=== PATIENT | male | born 1950 | race Two or more races ===

== ENCOUNTER 2022-02-24 17:21 | Emergency (ER) | payer OTHER ==
[~2022-02-24] VITALS: Ht 175.3 cm; Wt 81.0 kg
[2022-02-24] MEDS ORDERED: FLUORESCEIN SOD OPTH TEST STRIP LEFTEYE ONE (22:15)
[2022-02-24] MEDS ORDERED: ACYCLOVIR SOD 50MG/ML 800 MG in SODIUM CHL 0.9% 250 ML IV ONE (22:15)
[2022-02-24 23:12] LABS: Basophils # (auto) 0.1 10 ^3/uL (0-0.2); Basophils % (auto) 1.3 % (0.0-2.0); Eosinophils # (auto) 0.1 10 ^3/uL (0-0.8); Eosinophils % (auto) 1.5 % (0.0-7.0); Hematocrit 42.1 % (41.0-53.0); Hemoglobin 13.9 g/dL (13.5-17.5); Lymphocytes # (auto) 1.7 10 ^3/uL (0.4-5.4); Lymphocytes % (auto) 28.3 % (10.0-50.0); Mean Corpuscular Hemoglobin 31.6 pg (28.0-32.0); Mean Corpuscular Volume 95.7 fL (80.0-100.0); Monocytes # (auto) 0.4 10 ^3/uL (0-1.3); Monocytes % (auto) 7.1 % (0.0-12.0); Neutrophils # (auto) 3.8 10 ^3/uL (1.6-8.6); Neutrophils % (auto) 61.8 % (37.0-80.0); Nucleated Red Blood Cells % 0.1 %; Red Blood Cells 4.39 10^6/uL (4.5-5.90); Red Cell Distribution Width 13.4 % (11.8-14.3); White Blood Cell 6.1 10^3/uL (4.4-10.8)
[2022-02-24 23:29] LABS: Albumin 3.6 g/dL (3.4-5.0); Calcium 8.7 mg/dL (8.5-10.1); Potassium 3.3 mmol/L (3.5-5.1)
[2022-02-24 23:33] LABS: BUN/Creatinine Ratio 18.3; Bilirubin, Total 1.5 mg/dL (0.2-1.0); Total Protein 7.4 g/dL (6.4-8.2)
[2022-02-25] MEDS ORDERED: ACYCLOVIR SOD 50MG/ML 800 MG in SODIUM CHL 0.9% 250 ML IV ONE (06:15)
[2022-02-25 11:00] VITALS: BP 124/82
== END 2022-02-25 14:43 | disposition left against medical advice (07) ==
LOC: ER 17:34
DX: B02.30 Zoster ocular disease, unspecified (principal); Z20.822 Contact with and (suspected) exposure to COVID-19
CPT/HCPCS: 36415; 80053; 85025; 87426; 96365; 96366; 99285; J0133; J7050

== ENCOUNTER 2022-03-01 07:59 | Inpatient (IN) | payer OTHER ==
[~2022-03-01] VITALS: Ht 177.8 cm; Wt 76.4 kg
[2022-03-01 09:00] LABS: Basophils # (auto) 0 10 ^3/uL (0-0.2); Basophils % (auto) 0.3 % (0.0-2.0); Eosinophils # (auto) 0 10 ^3/uL (0-0.8); Eosinophils % (auto) 0.1 % (0.0-7.0); Hematocrit 41.6 % (41.0-53.0); Lymphocytes # (auto) 0.5 10 ^3/uL (0.4-5.4); Lymphocytes % (auto) 6.5 % (10.0-50.0); Mean Corpuscular Hemoglobin 32.3 pg (28.0-32.0); Mean Corpuscular Hgb Conc. 33.7 g/dL (32.0-36.0); Mean Corpuscular Volume 95.7 fL (80.0-100.0); Monocytes # (auto) 0.2 10 ^3/uL (0-1.3); Monocytes % (auto) 2.8 % (0.0-12.0); Neutrophils # (auto) 7.3 10 ^3/uL (1.6-8.6); Neutrophils % (auto) 90.3 % (37.0-80.0); Red Blood Cells 4.35 10^6/uL (4.5-5.90); Red Cell Distribution Width 13.5 % (11.8-14.3)
[2022-03-01 09:19] LABS: Albumin 3.5 g/dL (3.4-5.0); Calcium 8.8 mg/dL (8.5-10.1); Magnesium 2.3 mg/dL (1.6-2.6); Potassium 3.9 mmol/L (3.5-5.1)
[2022-03-01 09:27] LABS: BUN/Creatinine Ratio 19.2; Total Protein 6.9 g/dL (6.4-8.2)
[2022-03-01] MEDS ORDERED: cefTRIAXone 1GM/50ML D5W 50 ML IV ONE (15:30)
[2022-03-01] MEDS ORDERED: ACETAMINOPHEN 325 MG TAB PO ONE (18:00)
[2022-03-01] MEDS ORDERED: ONDANSETRON HCL 4 MG/2 ML VIAL IV PRN (18:45)
[2022-03-01] MEDS ORDERED: MORPHINE SULFATE INJ 2 MG/ml SYRG IV PRN ×2 (18:45)
[2022-03-01] MEDS ORDERED: NITROGLYCERIN 0.4 MG SL TAB SL PRN (18:45)
[2022-03-01] MEDS ORDERED: SODIUM CHLORIDE 0.9% 1,000 ML IV ONE (19:00)
[2022-03-01 19:55] LABS: INR 1.01 (0.9-1.15)
[2022-03-01 19:56] LABS: Cholesterol 181 mg/dL (< 200); HDL Cholesterol 41 mg/dL (40-59); LDL Cholesterol 130 mg/dL (< 100); Triglycerides 118 mg/dL (< 150)
[2022-03-01] MEDS: metroNIDAZOLE 500MG/100ML 100 ML IV SCH (22:25)
[2022-03-01 22:56] VITALS: BP 107/75
[2022-03-01] MEDS ORDERED: OMEP20TA PO (23:07)
[2022-03-02 05:00] VITALS: BP 107/70
[2022-03-02] MEDS: metroNIDAZOLE 500MG/100ML 100 ML IV SCH ×3 (05:27→22:22)
[2022-03-02 06:46] LABS: Alanine Aminotransferase 18 U/L (16-61); Albumin 3.1 g/dL (3.4-5.0); Anion Gap 6 (5-15); Aspartate Aminotransferase 18 U/L (15-37); BUN/Creatinine Ratio 18.7; Blood Urea Nitrogen 17 mg/dL (7-18); Calcium 8.1 mg/dL (8.5-10.1); Carbon Dioxide 24 mmol/L (21-32); Chloride 109 mmol/L (98-107); GFR African American 106 mL/min; GFR Non-African American 88 mL/min; Glucose 96 mg/dL (74-106); Sodium 139 mmol/L (136-145)
[2022-03-02 06:49] LABS: Alkaline Phosphatase 98 U/L (45-117); Total Protein 6.4 g/dL (6.4-8.2)
[2022-03-02 06:57] LABS: Basophils # (auto) 0 10 ^3/uL (0-0.2); Basophils % (auto) 0.8 % (0.0-2.0); Eosinophils # (auto) 0 10 ^3/uL (0-0.8); Eosinophils % (auto) 0.7 % (0.0-7.0); Hematocrit 42.1 % (41.0-53.0); Hemoglobin 14.3 g/dL (13.5-17.5); Lymphocytes # (auto) 1.1 10 ^3/uL (0.4-5.4); Lymphocytes % (auto) 18.7 % (10.0-50.0); Mean Corpuscular Hemoglobin 32.3 pg (28.0-32.0); Mean Corpuscular Hgb Conc. 33.9 g/dL (32.0-36.0); Mean Corpuscular Volume 95.3 fL (80.0-100.0); Monocytes # (auto) 0.4 10 ^3/uL (0-1.3); Monocytes % (auto) 6.8 % (0.0-12.0); Neutrophils # (auto) 4.4 10 ^3/uL (1.6-8.6); Nucleated Red Blood Cells % 0.2 %; Red Blood Cells 4.42 10^6/uL (4.5-5.90); Red Cell Distribution Width 13.4 % (11.8-14.3)
[2022-03-02 08:05] VITALS: BP 100/64
[2022-03-02 09:00] VITALS: BP 100/64
[2022-03-02] MEDS: cefTRIAXone 1GM/50ML D5W 50 ML IV SCH (09:44)
[2022-03-02] MEDS ORDERED: ACETAMINOPHEN 650 MG RECT SUPP PR PRN (13:45)
[2022-03-02 18:44] LABS: Urine Bacteria FEW /hpf (None Seen); Urine Blood Negative /uL (Negative); Urine Mucus MODERATE (None Seen); Urine Specific Gravity 1.024 (1.001-1.035); Urine WBC 1 /hpf (0 - 3)
[2022-03-02 20:00] VITALS: BP 115/74
[2022-03-02 22:00] VITALS: BP 115/74
[2022-03-03 05:00] VITALS: BP 114/69
[2022-03-03] MEDS: metroNIDAZOLE 500MG/100ML 100 ML IV SCH ×3 (05:28→22:18)
[2022-03-03] MEDS: cefTRIAXone 1GM/50ML D5W 50 ML IV SCH (08:36)
[2022-03-03 09:00] VITALS: BP 132/62
[2022-03-03 13:00] VITALS: BP 125/73
[2022-03-03 16:45] VITALS: BP 118/73
[2022-03-03 22:00] VITALS: BP 117/68
[2022-03-04 05:00] VITALS: BP 116/75
[2022-03-04] MEDS: metroNIDAZOLE 500MG/100ML 100 ML IV SCH ×3 (06:25→21:28)
[2022-03-04] MEDS: cefTRIAXone 1GM/50ML D5W 50 ML IV SCH (08:34)
[2022-03-04 09:00] VITALS: BP 119/76
[2022-03-04 13:00] VITALS: BP 122/82
[2022-03-04] MEDS ORDERED: BUPIVACAINE HCL 0.25% P/F 10 ML VIAL ONE (13:44)
[2022-03-04] MEDS ORDERED: GLYCOPYRROLATE 0.2 MG/ML 1ML VIAL ONE (14:00)
[2022-03-04] MEDS ORDERED: DexAMETHasone SOD PHOS 10MG/1ML VIAL INJ ONE (14:00)
[2022-03-04] MEDS ORDERED: LIDOCAINE HCL 100 MG/5ML (2%) SYRG INJ IV ONE (14:00)
[2022-03-04] MEDS ORDERED: ePHEDrine SULFATE 50 MG/ML AMP ONE (14:00)
[2022-03-04] MEDS ORDERED: ONDANSETRON HCL 4 MG/2 ML VIAL ONE (14:00)
[2022-03-04] MEDS ORDERED: fentaNYL CITRATE 100 MCG/2 ML VL ONE ×2 (14:00→16:17)
[2022-03-04] MEDS ORDERED: PROPOFOL 10 MG/ML 20 ML IV ONE (14:00)
[2022-03-04] MEDS ORDERED: HYDROmorphone HCL 2 MG/ML VL/or syr ONE (14:00)
[2022-03-04] MEDS ORDERED: MIDAZOLAM HCL 2MG/2ML 2ml VIAL (1mg/ml) ONE (14:00)
[2022-03-04] MEDS ORDERED: ceFAZolin 1GM/50ML 100 ML IV ONE (14:15)
[2022-03-04] MEDS ORDERED: SUGAMMADEX 200mg/2ml Vial (100MG/ML) IV ONE (15:28)
[2022-03-04] MEDS ORDERED: ONDANSETRON HCL 4 MG/2 ML VIAL IV PRN (15:30)
[2022-03-04] MEDS ORDERED: HYDROmorphone HCL 2 MG/ML VL/or syr IV PRN (15:30)
[2022-03-04] MEDS: D5W/SOD CHL 0.45% 1,000 ML IV SCH (18:58)
[2022-03-04 22:00] VITALS: BP 122/60
[2022-03-05 05:00] VITALS: BP 119/72
[2022-03-05] MEDS: metroNIDAZOLE 500MG/100ML 100 ML IV SCH ×3 (05:52→21:20)
[2022-03-05 09:42] VITALS: BP 134/71
[2022-03-05] MEDS: cefTRIAXone 1GM/50ML D5W 50 ML IV SCH (09:45)
[2022-03-05] MEDS: D5W/SOD CHL 0.45% 1,000 ML IV SCH (09:45)
[2022-03-05 12:06] VITALS: BP 119/76
[2022-03-05] MEDS ORDERED: BENZOCAINE (DENTAL) 20 % SPRAY 60ML MT PRN (14:00)
[2022-03-05 15:00] LABS: Albumin 2.9 g/dL (3.4-5.0); Potassium 3.7 mmol/L (3.5-5.1)
[2022-03-05 16:01] LABS: BUN/Creatinine Ratio 14.6; Total Protein 6.2 g/dL (6.4-8.2)
[2022-03-05 16:05] LABS: Basophils # (auto) 0.1 10 ^3/uL (0-0.2); Basophils % (auto) 0.4 % (0.0-2.0); Eosinophils # (auto) 0 10 ^3/uL (0-0.8); Hematocrit 41.5 % (41.0-53.0); Hemoglobin 13.6 g/dL (13.5-17.5); Lymphocytes # (auto) 0.9 10 ^3/uL (0.4-5.4); Lymphocytes % (auto) 7.5 % (10.0-50.0); Mean Corpuscular Hemoglobin 31.5 pg (28.0-32.0); Mean Corpuscular Hgb Conc. 32.9 g/dL (32.0-36.0); Mean Corpuscular Volume 95.7 fL (80.0-100.0); Monocytes # (auto) 0.5 10 ^3/uL (0-1.3); Monocytes % (auto) 4.2 % (0.0-12.0); Neutrophils # (auto) 10.4 10 ^3/uL (1.6-8.6); Neutrophils % (auto) 87.9 % (37.0-80.0); Red Blood Cells 4.34 10^6/uL (4.5-5.90); Red Cell Distribution Width 13.4 % (11.8-14.3); White Blood Cell 11.9 10^3/uL (4.4-10.8)
[2022-03-05 17:28] VITALS: BP 124/73
[2022-03-05 22:00] VITALS: BP 117/75
[2022-03-06] MEDS: D5W/SOD CHL 0.45% 1,000 ML IV SCH ×2 (01:09→11:36)
[2022-03-06 05:00] VITALS: BP 131/81
[2022-03-06] MEDS: metroNIDAZOLE 500MG/100ML 100 ML IV SCH ×3 (05:37→23:24)
[2022-03-06 09:00] VITALS: BP 132/84
[2022-03-06] MEDS: cefTRIAXone 1GM/50ML D5W 50 ML IV SCH (09:27)
[2022-03-06 13:00] VITALS: BP 131/90
[2022-03-06 17:00] VITALS: BP 122/95
[2022-03-06 22:00] VITALS: BP 134/84
[2022-03-07] MEDS: D5W/SOD CHL 0.45% 1,000 ML IV SCH ×2 (00:05→13:25)
[2022-03-07 05:00] VITALS: BP 128/89
[2022-03-07] MEDS: metroNIDAZOLE 500MG/100ML 100 ML IV SCH ×3 (06:43→20:37)
[2022-03-07 08:50] VITALS: BP 119/86
[2022-03-07] MEDS: cefTRIAXone 1GM/50ML D5W 50 ML IV SCH (09:09)
[2022-03-07 12:40] VITALS: BP 121/87
[2022-03-07 17:47] VITALS: BP 124/83
[2022-03-08] MEDS: metroNIDAZOLE 500MG/100ML 100 ML IV SCH ×3 (04:52→21:59)
[2022-03-08 05:00] VITALS: BP 130/79
[2022-03-08 05:56] LABS: Basophils # (auto) 0.1 10 ^3/uL (0-0.2); Basophils % (auto) 0.9 % (0.0-2.0); Eosinophils # (auto) 0.1 10 ^3/uL (0-0.8); Eosinophils % (auto) 0.8 % (0.0-7.0); Hemoglobin 14.1 g/dL (13.5-17.5); Lymphocytes # (auto) 1.3 10 ^3/uL (0.4-5.4); Lymphocytes % (auto) 17.6 % (10.0-50.0); Mean Corpuscular Hemoglobin 32.6 pg (28.0-32.0); Mean Corpuscular Hgb Conc. 34.4 g/dL (32.0-36.0); Mean Corpuscular Volume 94.6 fL (80.0-100.0); Monocytes # (auto) 0.5 10 ^3/uL (0-1.3); Monocytes % (auto) 6.8 % (0.0-12.0); Neutrophils # (auto) 5.3 10 ^3/uL (1.6-8.6); Neutrophils % (auto) 73.9 % (37.0-80.0); Red Blood Cells 4.33 10^6/uL (4.5-5.90); Red Cell Distribution Width 13.1 % (11.8-14.3); White Blood Cell 7.2 10^3/uL (4.4-10.8)
[2022-03-08 06:20] LABS: BUN/Creatinine Ratio 14.6; Calcium 8.3 mg/dL (8.5-10.1); Potassium 3.4 mmol/L (3.5-5.1)
[2022-03-08 08:45] VITALS: BP 107/77
[2022-03-08] MEDS: cefTRIAXone 1GM/50ML D5W 50 ML IV SCH (10:23)
[2022-03-08 12:45] VITALS: BP 111/76
[2022-03-08] MEDS ORDERED: POTASSIUM EFFERVESENT TAB 25 MEQ PO ONE (14:45)
[2022-03-08] MEDS: D5W/SOD CHL 0.45% 1,000 ML IV SCH (16:05)
[2022-03-08 16:25] VITALS: BP 127/80
[2022-03-08 22:00] VITALS: BP 109/70
[2022-03-09 05:00] VITALS: BP 117/76
[2022-03-09 05:24] LABS: Basophils # (auto) 0.1 10 ^3/uL (0-0.2); Basophils % (auto) 1.1 % (0.0-2.0); Eosinophils # (auto) 0.2 10 ^3/uL (0-0.8); Eosinophils % (auto) 4.2 % (0.0-7.0); Hematocrit 41.9 % (41.0-53.0); Hemoglobin 14.1 g/dL (13.5-17.5); Lymphocytes # (auto) 1.2 10 ^3/uL (0.4-5.4); Lymphocytes % (auto) 22.8 % (10.0-50.0); Mean Corpuscular Hemoglobin 31.9 pg (28.0-32.0); Mean Corpuscular Hgb Conc. 33.6 g/dL (32.0-36.0); Mean Corpuscular Volume 94.9 fL (80.0-100.0); Monocytes # (auto) 0.5 10 ^3/uL (0-1.3); Monocytes % (auto) 8.8 % (0.0-12.0); Neutrophils # (auto) 3.3 10 ^3/uL (1.6-8.6); Neutrophils % (auto) 63.1 % (37.0-80.0); Red Blood Cells 4.42 10^6/uL (4.5-5.90); Red Cell Distribution Width 13.3 % (11.8-14.3); White Blood Cell 5.2 10^3/uL (4.4-10.8)
[2022-03-09] MEDS: D5W/SOD CHL 0.45% 1,000 ML IV SCH (05:26)
[2022-03-09] MEDS: metroNIDAZOLE 500MG/100ML 100 ML IV SCH (05:31)
[2022-03-09 05:42] LABS: BUN/Creatinine Ratio 11.2; Calcium 8.2 mg/dL (8.5-10.1); Potassium 3.9 mmol/L (3.5-5.1)
[2022-03-09 09:00] VITALS: BP 134/80
[2022-03-09] MEDS: cefTRIAXone 1GM/50ML D5W 50 ML IV SCH (10:21)
[2022-03-09 13:14] VITALS: BP 108/69
[2022-03-09] MEDS ORDERED: ACET325T10 PO (13:28)
[2022-03-09 14:54] VITALS: BP 135/96
== END 2022-03-09 16:18 | disposition home health service (06) | DRG 418 ==
LOC: EDBD 07:59 → ER 07:59 → TELE 18:57 → TELE-WESTW 21:24
PROVIDERS: ADMIT Registered Nurse; ATTEND Internal Medicine
PROC: 0DNW4ZZ Release Peritoneum, Percutaneous Endoscopic Approach (ICD-10-PCS; 2022-03-04)
PROC: 0FT44ZZ Resection of Gallbladder, Percutaneous Endoscopic Approach (ICD-10-PCS; principal; 2022-03-04 14:53)
DX: K80.00 Calculus of gallbladder with acute cholecystitis without obstruction (principal); J90 Pleural effusion, not elsewhere classified; J98.11 Atelectasis; K56.7 Ileus, unspecified; K44.9 Diaphragmatic hernia without obstruction or gangrene; N18.2 Chronic kidney disease, stage 2 (mild); K21.9 Gastro-esophageal reflux disease without esophagitis; K66.0 Peritoneal adhesions (postprocedural) (postinfection); Z20.822 Contact with and (suspected) exposure to COVID-19; Z96.649 Presence of unspecified artificial hip joint
CPT/HCPCS: 36415; 71045; 71046; 74176; 74181; 76604; 76705; 78226; 80048; 80053; 80061; 81001; 82150; 83036; 83690; 83735; 83880; 84443; 84484; 85025; 85610; 93005; 93306; 96361; 96365; G0378; J0690; J0696; J1100; J2250; J2405; J2704; J3490